=== PATIENT | male | born 1945 | race Caucasian/White ===

== ENCOUNTER 2018-05-05 22:21 | Inpatient (IN) | payer MEDICARE ==
[~2018-05-05] VITALS: Ht 203.2 cm; Wt 163.5 kg
[~2018-05-05 22:21] MED LIST: AEC81 PO; ALPR1TAB7 PO; ASPIRIN; DULO60CA63 PO; FURO40TA5 PO; ISOS60TA4 PO; LEVO125T11 PO; METO-408 PO; MONT10TA24 PO; OXYC20TA76 PO; PREG200C PO; RANO500T2 PO; TAMS0.4C32 PO; UMEC1DIS IH; VITAMIN D PO
[2018-05-05 22:41] LABS: BASOPHILS % (AUTO) 0.5 % (0.0-5.0); HEMATOCRIT 34.1 % (42-54); LYMPHOCYTES % (AUTO) 24.4 % (21.0-51.0); MEAN CORPUSCULAR HEMOGLOBIN 30.3 pg (27.0-33.0); MEAN CORPUSCULAR HGB CONC 33.2 g/dL (32.0-36.0); MEAN CORPUSCULAR VOLUME 91.4 fL (79-99); MONOCYTES % (AUTO) 7.5 % (3.0-13.0); NEUTROPHILS % (AUTO) 64.6 % (40.0-77.0); PLATELET COUNT (AUTO) 179 K/uL (130-400); RED BLOOD CELL COUNT(AUTO) 3.73 MIL/uL (4.50-6.20); RED CELL DISTRIBUTION WIDTH 14.5 % (11.0-15.5); WHITE BLOOD COUNT (AUTO) 7.5 K/uL (4.8-10.8)
[2018-05-05 22:53] LABS: CREATININE 1.3 mg/dL (0.5-1.5); POTASSIUM 4.4 mmol/L (3.5-5.1)
[2018-05-05 22:54] LABS: ALBUMIN 3.3 g/dL (3.5-5.0); BILIRUBIN,TOTAL 0.3 mg/dL (0.2-1.0); TOTAL PROTEIN, SERUM 7.3 g/dL (6.0-8.3)
[2018-05-05 23:00] LABS: INR 0.99 (0.85-1.15); PARTIAL THROMBOPLASTIN TIME 31.4 SEC (26.3-35.5); PROTHROMBIN TIME 10.4 SEC (9.6-11.6)
[2018-05-05 23:09] LABS: B-TYPE NATRIURETIC PEPTIDE 194 pg/mL (0-100)
[2018-05-06] VITALS (8 sets, daily range): BP systolic 122–159; BP diastolic 62–109
[2018-05-06 00:23] LABS: APPEARANCE,URINE Clear (CLEAR); BILIRUBIN,URINE Negative (NEGATIVE); COLOR,URINE Yellow (YELLOW); GLUCOSE, URINE (UA) Negative (NEGATIVE); KETONES,URINE Negative (NEGATIVE); LEUKOCYTE ESTERASE ,URINE Negative (NEGATIVE); NITRATE,URINE Negative (NEGATIVE); OCCULT BLOOD,URINE Negative (NEGATIVE); PH,URINE 5.5 (5.0-8.0); PROTEIN,URINE Negative (NEGATIVE)
[2018-05-06] MEDS ORDERED: SODIUM CHLORIDE 0.9% 1000ML 1,000 ML IV SCH (00:37)
[2018-05-06] MEDS ORDERED: ACETAMINOPHEN 325 MG TAB PO PRN (00:45)
[2018-05-06] MEDS ORDERED: ONDANSETRON HCL 4 MG/2 ML VIAL IV PRN (00:45)
[2018-05-06] MEDS ORDERED: NITROGLYCERIN 0.4 MG SL TAB SL PRN (00:45)
[2018-05-06] MEDS ORDERED: IPRATROPIUM/ALBUTEROL SULFATE 3 ML SOLUTION IH PRN ×2 (00:45→12:00)
[2018-05-06] MEDS ORDERED: SODIUM CHLORIDE 0.9% 1000ML 1,000 ML IV ONE (01:04)
[2018-05-06 01:25] LABS: MAGNESIUM 2.1 mg/dL (1.80-2.40); THYROID STIMULATING HORMONE 1.74 uIU/mL (0.36-3.74)
[2018-05-06] MEDS ORDERED: IPRATROPIUM 0.5 MG/2.5 ML INH IH PRN (02:30)
[2018-05-06] MEDS ORDERED: HYDROCODONE/ACETAMINOPHEN 5/325 MG TAB ONE (03:09)
[2018-05-06] MEDS ORDERED: POTA-9 PO (03:53)
[2018-05-06] MEDS ORDERED: SIMV10TA6 PO (03:53)
[2018-05-06] MEDS ORDERED: CHOL50004 PO (03:53)
[2018-05-06] MEDS ORDERED: RANO10003 PO (03:53)
[2018-05-06] MEDS ORDERED: FURO40TA5 PO (03:53)
[2018-05-06] MEDS ORDERED: ASPI-1181 PO (03:53)
[2018-05-06] MEDS ORDERED: METO50TA9 PO (03:53)
[2018-05-06] MEDS ORDERED: PREG75 PO (03:53)
[2018-05-06] MEDS ORDERED: PRAS10TA9 PO (03:53)
[2018-05-06] MEDS ORDERED: ALPR1TAB7 PO (03:53)
[2018-05-06] MEDS ORDERED: TAMS0.4C32 PO (03:53)
[2018-05-06] MEDS ORDERED: DIGO-44 PO (03:53)
[2018-05-06] MEDS ORDERED: AMLO5TAB9 PO (03:53)
[2018-05-06] MEDS ORDERED: DULO60CA63 PO (03:53)
[2018-05-06] MEDS ORDERED: ISOS30TA6 PO (03:53)
[2018-05-06] MEDS ORDERED: DEXT1DRO OU (03:53)
[2018-05-06] MEDS ORDERED: LEVO125 PO (03:53)
[2018-05-06 04:19] LABS: AMPHET/METH SCREEN,URINE NEGATIVE (NEGATIVE); BARBITURATE SCREEN, URINE NEGATIVE (NEGATIVE); BENZODIAZEPINES SCREEN,URINE NEGATIVE (NEGATIVE); CANNABINOID SCREEN,URINE NEGATIVE (NEGATIVE); COCAINE SCREEN,URINE NEGATIVE (NEGATIVE); OPIATE SCREEN,URINE NEGATIVE (NEGATIVE); PHENCYCLIDINE SCREEN,URINE NEGATIVE (NEGATIVE)
[2018-05-06 05:35] LABS: CREATINE KINASE, TOTAL 161 U/L (21-232); MYOGLOBIN 113 ng/mL (10-92); TROPONIN I < 0.04 ng/mL (0.00-0.06)
[2018-05-06] MEDS: PANTOPRAZOLE SODIUM 40 MG TABLET.DR PO SCH (09:02)
[2018-05-06] MEDS: ENOXAPARIN SODIUM 40 MG/0.4 ML SYRINGE SQ SCH (09:02)
[2018-05-06 10:11] LABS: BASOPHILS % (AUTO) 0.3 % (0.0-5.0); EOSINOPHILS % (AUTO) 2.6 % (0.0-8.0); HEMATOCRIT 33.4 % (42-54); LYMPHOCYTES % (AUTO) 28.3 % (21.0-51.0); MEAN CORPUSCULAR HEMOGLOBIN 29.9 pg (27.0-33.0); MEAN CORPUSCULAR HGB CONC 32.6 g/dL (32.0-36.0); MEAN CORPUSCULAR VOLUME 91.7 fL (79-99); MONOCYTES % (AUTO) 8.2 % (3.0-13.0); NEUTROPHILS % (AUTO) 60.6 % (40.0-77.0); PLATELET COUNT (AUTO) 150 K/uL (130-400); RED BLOOD CELL COUNT(AUTO) 3.65 MIL/uL (4.50-6.20); RED CELL DISTRIBUTION WIDTH 14.6 % (11.0-15.5); WHITE BLOOD COUNT (AUTO) 7.4 K/uL (4.8-10.8)
[2018-05-06 10:29] LABS: ALBUMIN 2.8 g/dL (3.5-5.0); BILIRUBIN,TOTAL 0.3 mg/dL (0.2-1.0); CREATININE 1.3 mg/dL (0.5-1.5); POTASSIUM 4.2 mmol/L (3.5-5.1); TOTAL PROTEIN, SERUM 6.3 g/dL (6.0-8.3)
[2018-05-06 10:39] LABS: CREATINE KINASE, TOTAL 151 U/L (21-232); MYOGLOBIN 105 ng/mL (10-92); TROPONIN I < 0.04 ng/mL (0.00-0.06)
[2018-05-06] MEDS ORDERED: ARTIFICAL TEARS SOL 15 ML OU PRN (11:00)
--- NOTE | 2018-05-06 12:05 | NUR ---
C/O OF SOB . .. PT HOB UP. PLACED ON 2 LITER NC . AND NOTIFY . YAAKOV. LEROY, REGARDING PT. C/O ORDERS FOR RESP TREATMENT. RESPT STAFF HERE AND WILL GIVE A RESP TX NOW. O2 SAT OF 95% RR OF 18
--- NOTE | 2018-05-06 13:53 | NUR ---
DCP CM met with pt discussed dc plans. Pt is independent prior to admission, states he lives at home with cousin Beronica Jensen. He uses a cane and has a hospital bed at home. Denies any other equipments/services. Pt feels safe to go back home, cousin able to assist with transportation and needs as necessary. DC plan to home once stable. CM to cont to follow up. Addendum: 05/06/18 at 1355 by INO DYER LVN CM Amended: Links added.
[2018-05-06] MEDS: DIGOXIN 125 MCG TABLET PO SCH (16:12)
[2018-05-06] MEDS: RANOLAZINE 500 MG TAB.SR.12H PO SCH (21:56)
[2018-05-06] MEDS: FUROSEMIDE 40 MG TABLET PO SCH (21:56)
[2018-05-06] MEDS: PREGABALIN 75 MG CAPSULE PO SCH (21:56)
[2018-05-06] MEDS: METOPROLOL TARTRATE 50 MG TAB PO SCH (21:57)
[2018-05-06] MEDS: SIMVASTATIN 10 MG TABLET PO SCH (21:57)
--- NOTE | 2018-05-06 22:00 | NUR ---
SHORTNESS OF BREATH Patient is resting in bed, AA&O X3. Patient states he is not feeling well and has shortness of breath with wheezing. Raised the head of bed and assessed patient. Bilateral lungs clear upon auscultation; O2 Sat is 96% on 2 liters via NC. Vital signs are WNL. Paged CLOTH PRINTING BACK TENDER Kanu Degroot to inform of patient's shortness of breath. Obtained orders to place patient on BiPap and to make sure respiratory gives patient atrovent breathing treatment. Will follow orders and continue to monitor patient.
[2018-05-06] MEDS: HYDROCODONE/ACETAMINOPHEN 5/325 MG TAB PO PRN (22:16)
--- NOTE | 2018-05-06 22:20 | NUR ---
STATUS OF PATIENT Patient still feels shortness of breath and states he wants the SALES AND BUSINESS DEVELOPMENT MANAGER fashion marketer to come see him. Patient received his breathing treatment by respiratory and is not ready to be on the bipap at this time. Paged SALES AND BUSINESS DEVELOPMENT MANAGER Kanu Degroot. Informed her of patient still feeling shortness of breath and a request to see SALES AND BUSINESS DEVELOPMENT MANAGER. SALES AND BUSINESS DEVELOPMENT MANAGER made rounds with the patient and assessed patient. Placed order to discontinue IV fluids and to do a stat EKG and cardiac panel. SALES AND BUSINESS DEVELOPMENT MANAGER states to notify if cardiac panel is abnormal. Will follow orders and continue to monitor patient.
[2018-05-06 23:03] LABS: CREATINE KINASE, TOTAL 143 U/L (21-232); MYOGLOBIN 76 ng/mL (10-92); TROPONIN I < 0.04 ng/mL (0.00-0.06)
--- NOTE | 2018-05-06 23:30 | NUR ---
STATUS OF PATIENT Patient is resting in bed. Patient states he is feeling better and not in shortness of breath at this time. MUSHROOM PICKER made rounds again with patient. Cardiac panel is negative and reviewed EKG. MUSHROOM PICKER states that patient will be having a chest x-ray tomorrow am. No orders were obtained at this time. Will continue to monitor patient.
[2018-05-07] VITALS (7 sets, daily range): BP systolic 95–146; BP diastolic 51–70
[2018-05-07 05:27] LABS: BASOPHILS % (AUTO) 0.4 % (0.0-5.0); EOSINOPHILS % (AUTO) 1.7 % (0.0-8.0); HEMATOCRIT 36.1 % (42-54); LYMPHOCYTES % (AUTO) 9.7 % (21.0-51.0); MEAN CORPUSCULAR HEMOGLOBIN 30.6 pg (27.0-33.0); MEAN CORPUSCULAR HGB CONC 33.3 g/dL (32.0-36.0); MEAN CORPUSCULAR VOLUME 91.9 fL (79-99); MONOCYTES % (AUTO) 9.2 % (3.0-13.0); PLATELET COUNT (AUTO) 169 K/uL (130-400); RED BLOOD CELL COUNT(AUTO) 3.92 MIL/uL (4.50-6.20); RED CELL DISTRIBUTION WIDTH 14.7 % (11.0-15.5); WHITE BLOOD COUNT (AUTO) 9.5 K/uL (4.8-10.8)
[2018-05-07 05:39] LABS: CREATININE 1.3 mg/dL (0.5-1.5); POTASSIUM 4.4 mmol/L (3.5-5.1)
[2018-05-07] MEDS: LEVOTHYROXINE 125 MCG TABLET PO SCH (06:41)
[2018-05-07] MEDS: DULOXETINE HCL 30 MG CAP PO SCH (08:23)
[2018-05-07] MEDS: AMLODIPINE BESYLATE 5 MG TAB PO SCH (08:24)
[2018-05-07] MEDS: METOPROLOL TARTRATE 50 MG TAB PO SCH ×2 (08:24→21:05)
[2018-05-07] MEDS: TAMSULOSIN HCL 0.4 MG CAP.ER.24H PO SCH (08:24)
[2018-05-07] MEDS: FUROSEMIDE 40 MG TABLET PO SCH ×2 (08:24→21:05)
[2018-05-07] MEDS: PANTOPRAZOLE SODIUM 40 MG TABLET.DR PO SCH (08:24)
[2018-05-07] MEDS: RANOLAZINE 500 MG TAB.SR.12H PO SCH ×2 (08:24→21:05)
[2018-05-07] MEDS: ASPIRIN 81 MG EC TAB PO SCH (08:24)
[2018-05-07] MEDS: ISOSORBIDE MONO 30MG TAB SR PO SCH (08:26)
[2018-05-07] MEDS: PREGABALIN 75 MG CAPSULE PO SCH ×2 (08:26→21:05)
[2018-05-07] MEDS: ENOXAPARIN SODIUM 40 MG/0.4 ML SYRINGE SQ SCH (08:27)
[2018-05-07] MEDS: CHOLECALCIFEROL 5000 UNIT PO SCH (08:27)
[2018-05-07] MEDS: PRASUGREL HCL 10 MG TABLET PO SCH (08:32)
[2018-05-07] MEDS: HYDROCODONE/ACETAMINOPHEN 5/325 MG TAB PO PRN ×2 (08:32→18:25)
[2018-05-07] MEDS: DIGOXIN 125 MCG TABLET PO SCH (15:38)
[2018-05-07] MEDS: SIMVASTATIN 10 MG TABLET PO SCH (21:05)
[2018-05-08] VITALS (8 sets, daily range): BP systolic 95–126; BP diastolic 50–72
[2018-05-08] MEDS: HYDROCODONE/ACETAMINOPHEN 5/325 MG TAB PO PRN ×4 (00:02→20:20)
[2018-05-08 04:30] LABS: BASOPHILS % (AUTO) 0.4 % (0.0-5.0); EOSINOPHILS % (AUTO) 3.3 % (0.0-8.0); HEMATOCRIT 33.2 % (42-54); LYMPHOCYTES % (AUTO) 23.6 % (21.0-51.0); MEAN CORPUSCULAR HEMOGLOBIN 30.4 pg (27.0-33.0); MEAN CORPUSCULAR HGB CONC 33.3 g/dL (32.0-36.0); MEAN CORPUSCULAR VOLUME 91.3 fL (79-99); MONOCYTES % (AUTO) 12.2 % (3.0-13.0); NEUTROPHILS % (AUTO) 60.5 % (40.0-77.0); PLATELET COUNT (AUTO) 142 K/uL (130-400); RED BLOOD CELL COUNT(AUTO) 3.63 MIL/uL (4.50-6.20); RED CELL DISTRIBUTION WIDTH 14.8 % (11.0-15.5); WHITE BLOOD COUNT (AUTO) 7.2 K/uL (4.8-10.8)
[2018-05-08 04:50] LABS: CREATININE 1.5 mg/dL (0.5-1.5); POTASSIUM 4.4 mmol/L (3.5-5.1)
[2018-05-08 05:02] LABS: B-TYPE NATRIURETIC PEPTIDE 163 pg/mL (0-100)
[2018-05-08] MEDS: LEVOTHYROXINE 125 MCG TABLET PO SCH (06:45)
[2018-05-08] MEDS: FUROSEMIDE 40 MG TABLET PO SCH ×2 (08:57→20:24)
[2018-05-08] MEDS: ASPIRIN 81 MG EC TAB PO SCH (08:57)
[2018-05-08] MEDS: PANTOPRAZOLE SODIUM 40 MG TABLET.DR PO SCH (08:58)
[2018-05-08] MEDS: TAMSULOSIN HCL 0.4 MG CAP.ER.24H PO SCH (08:58)
[2018-05-08] MEDS: METOPROLOL TARTRATE 50 MG TAB PO SCH ×2 (08:58→20:20)
[2018-05-08] MEDS: RANOLAZINE 500 MG TAB.SR.12H PO SCH ×2 (08:58→20:20)
[2018-05-08] MEDS: PREGABALIN 75 MG CAPSULE PO SCH (08:58)
[2018-05-08] MEDS: ISOSORBIDE MONO 30MG TAB SR PO SCH (08:58)
[2018-05-08] MEDS: DULOXETINE HCL 30 MG CAP PO SCH (08:58)
[2018-05-08] MEDS: ENOXAPARIN SODIUM 40 MG/0.4 ML SYRINGE SQ SCH (08:59)
[2018-05-08] MEDS: CHOLECALCIFEROL 5000 UNIT PO SCH (08:59)
[2018-05-08] MEDS: AMLODIPINE BESYLATE 5 MG TAB PO SCH (09:00)
[2018-05-08] MEDS: PRASUGREL HCL 10 MG TABLET PO SCH (10:12)
--- NOTE | 2018-05-08 12:41 | NUR ---
CM Note: [facility] pending ins auth Spoke to [facility]. updated clinicals received and submitted to insurance. Pt currently pending ins auth at this time, MOT flagged semi-filled in chart. Primary nurse aware. CM to cont to follow up.
[2018-05-08] MEDS: DIGOXIN 125 MCG TABLET PO SCH (16:16)
[2018-05-08] MEDS: SIMVASTATIN 10 MG TABLET PO SCH (20:20)
[2018-05-08] MEDS: GABAPENTIN 100 MG CAPSULE PO SCH (20:20)
[2018-05-09] VITALS (7 sets, daily range): BP systolic 100–129; BP diastolic 61–65
[2018-05-09] MEDS: HYDROCODONE/ACETAMINOPHEN 5/325 MG TAB PO PRN ×3 (03:33→21:48)
[2018-05-09 04:13] LABS: BASOPHILS % (AUTO) 0.5 % (0.0-5.0); EOSINOPHILS % (AUTO) 4.1 % (0.0-8.0); HEMATOCRIT 31.8 % (42-54); LYMPHOCYTES % (AUTO) 17.7 % (21.0-51.0); MEAN CORPUSCULAR HEMOGLOBIN 30.4 pg (27.0-33.0); MEAN CORPUSCULAR HGB CONC 33.3 g/dL (32.0-36.0); MEAN CORPUSCULAR VOLUME 91.3 fL (79-99); MONOCYTES % (AUTO) 10.5 % (3.0-13.0); NEUTROPHILS % (AUTO) 67.2 % (40.0-77.0); PLATELET COUNT (AUTO) 155 K/uL (130-400); RED BLOOD CELL COUNT(AUTO) 3.49 MIL/uL (4.50-6.20); RED CELL DISTRIBUTION WIDTH 14.7 % (11.0-15.5); WHITE BLOOD COUNT (AUTO) 6.8 K/uL (4.8-10.8)
[2018-05-09 04:20] LABS: CREATININE 1.4 mg/dL (0.5-1.5); POTASSIUM 4.5 mmol/L (3.5-5.1)
[2018-05-09] MEDS: LEVOTHYROXINE 125 MCG TABLET PO SCH (07:00)
[2018-05-09] MEDS: GABAPENTIN 100 MG CAPSULE PO SCH ×3 (08:26→21:48)
[2018-05-09] MEDS: TAMSULOSIN HCL 0.4 MG CAP.ER.24H PO SCH (08:26)
[2018-05-09] MEDS: PRASUGREL HCL 10 MG TABLET PO SCH (08:27)
[2018-05-09] MEDS: DULOXETINE HCL 30 MG CAP PO SCH (08:27)
[2018-05-09] MEDS: RANOLAZINE 500 MG TAB.SR.12H PO SCH ×2 (08:27→21:47)
[2018-05-09] MEDS: ASPIRIN 81 MG EC TAB PO SCH (08:27)
[2018-05-09] MEDS: PANTOPRAZOLE SODIUM 40 MG TABLET.DR PO SCH (08:28)
[2018-05-09] MEDS: FUROSEMIDE 40 MG TABLET PO SCH ×2 (08:28→21:47)
[2018-05-09] MEDS: METOPROLOL TARTRATE 50 MG TAB PO SCH ×2 (08:29→21:47)
[2018-05-09] MEDS: ENOXAPARIN SODIUM 40 MG/0.4 ML SYRINGE SQ SCH (08:29)
[2018-05-09] MEDS: ISOSORBIDE MONO 30MG TAB SR PO SCH (08:30)
[2018-05-09] MEDS: CHOLECALCIFEROL 5000 UNIT PO SCH (08:31)
[2018-05-09] MEDS: AMLODIPINE BESYLATE 5 MG TAB PO SCH (09:00)
--- NOTE | 2018-05-09 12:53 | NUR ---
CM Note: [facility] pending ins auth Spoke to [facility], updated clinicals received and sent to insurance. Pt pending ins auth at this time. MOT semi-filled flagged in chart, pending to be completed once pt has auth. Primary nurse aware. CM to cont to follow up.
[2018-05-09] MEDS: DIGOXIN 125 MCG TABLET PO SCH (15:18)
[2018-05-09] MEDS: SIMVASTATIN 10 MG TABLET PO SCH (21:48)
[2018-05-09] MEDS: LACTULOSE 20 GM/30 ML UDCUP PO PRN (21:54)
[2018-05-10 03:00] VITALS: BP 131/69
[2018-05-10] MEDS: LEVOTHYROXINE 125 MCG TABLET PO SCH (06:02)
[2018-05-10] MEDS: HYDROCODONE/ACETAMINOPHEN 5/325 MG TAB PO PRN ×3 (06:02→23:18)
[2018-05-10 07:00] VITALS: BP 116/78
[2018-05-10] MEDS: CHOLECALCIFEROL 5000 UNIT PO SCH (08:56)
[2018-05-10] MEDS: METOPROLOL TARTRATE 50 MG TAB PO SCH ×2 (09:22→23:18)
[2018-05-10] MEDS: AMLODIPINE BESYLATE 5 MG TAB PO SCH (09:22)
[2018-05-10] MEDS: ISOSORBIDE MONO 30MG TAB SR PO SCH (09:22)
[2018-05-10] MEDS: TAMSULOSIN HCL 0.4 MG CAP.ER.24H PO SCH (09:22)
[2018-05-10] MEDS: DULOXETINE HCL 30 MG CAP PO SCH (09:22)
[2018-05-10] MEDS: RANOLAZINE 500 MG TAB.SR.12H PO SCH ×2 (09:23→23:18)
[2018-05-10] MEDS: GABAPENTIN 100 MG CAPSULE PO SCH ×3 (09:23→23:18)
[2018-05-10] MEDS: PANTOPRAZOLE SODIUM 40 MG TABLET.DR PO SCH (09:23)
[2018-05-10] MEDS: FUROSEMIDE 40 MG TABLET PO SCH ×2 (09:23→23:17)
[2018-05-10] MEDS: ASPIRIN 81 MG EC TAB PO SCH (09:23)
[2018-05-10] MEDS: PRASUGREL HCL 10 MG TABLET PO SCH (09:24)
[2018-05-10] MEDS: ENOXAPARIN SODIUM 40 MG/0.4 ML SYRINGE SQ SCH (09:25)
[2018-05-10 11:00] VITALS: BP_SYST 124; BP_SYST 146; BP_DIAS 64; BP_DIAS 66
[2018-05-10 16:00] VITALS: BP 105/58
[2018-05-10] MEDS: DIGOXIN 125 MCG TABLET PO SCH (16:55)
[2018-05-10 20:36] VITALS: BP 103/65
[2018-05-10] MEDS: SIMVASTATIN 10 MG TABLET PO SCH (23:17)
[2018-05-11 01:38] VITALS: BP 119/72
[2018-05-11 04:41] VITALS: BP 127/69
[2018-05-11 05:48] LABS: BASOPHILS % (AUTO) 0.3 % (0.0-5.0); EOSINOPHILS % (AUTO) 5.1 % (0.0-8.0); HEMATOCRIT 32.5 % (42-54); LYMPHOCYTES % (AUTO) 22.7 % (21.0-51.0); MEAN CORPUSCULAR HEMOGLOBIN 30.5 pg (27.0-33.0); MEAN CORPUSCULAR HGB CONC 33.5 g/dL (32.0-36.0); MEAN CORPUSCULAR VOLUME 91.1 fL (79-99); MONOCYTES % (AUTO) 11.5 % (3.0-13.0); NEUTROPHILS % (AUTO) 60.4 % (40.0-77.0); PLATELET COUNT (AUTO) 171 K/uL (130-400); RED BLOOD CELL COUNT(AUTO) 3.56 MIL/uL (4.50-6.20); RED CELL DISTRIBUTION WIDTH 14.2 % (11.0-15.5); WHITE BLOOD COUNT (AUTO) 6.2 K/uL (4.8-10.8)
[2018-05-11 05:57] LABS: CREATININE 1.3 mg/dL (0.5-1.5); POTASSIUM 4.1 mmol/L (3.5-5.1)
[2018-05-11] MEDS: LEVOTHYROXINE 125 MCG TABLET PO SCH (06:29)
[2018-05-11] MEDS: HYDROCODONE/ACETAMINOPHEN 5/325 MG TAB PO PRN ×3 (06:30→23:20)
[2018-05-11 07:00] VITALS: BP 122/65
[2018-05-11] MEDS: ENOXAPARIN SODIUM 40 MG/0.4 ML SYRINGE SQ SCH (08:55)
[2018-05-11] MEDS: DULOXETINE HCL 30 MG CAP PO SCH (08:55)
[2018-05-11] MEDS: RANOLAZINE 500 MG TAB.SR.12H PO SCH ×2 (08:56→23:17)
[2018-05-11] MEDS: TAMSULOSIN HCL 0.4 MG CAP.ER.24H PO SCH (08:56)
[2018-05-11] MEDS: ASPIRIN 81 MG EC TAB PO SCH (08:56)
[2018-05-11] MEDS: PRASUGREL HCL 10 MG TABLET PO SCH (08:56)
[2018-05-11] MEDS: PANTOPRAZOLE SODIUM 40 MG TABLET.DR PO SCH (08:57)
[2018-05-11] MEDS: GABAPENTIN 100 MG CAPSULE PO SCH ×3 (08:57→23:17)
[2018-05-11] MEDS: ISOSORBIDE MONO 30MG TAB SR PO SCH (08:57)
[2018-05-11] MEDS: METOPROLOL TARTRATE 50 MG TAB PO SCH ×2 (08:58→23:17)
[2018-05-11] MEDS: AMLODIPINE BESYLATE 5 MG TAB PO SCH (08:58)
[2018-05-11] MEDS: FUROSEMIDE 40 MG TABLET PO SCH ×2 (08:58→23:17)
[2018-05-11] MEDS: CHOLECALCIFEROL 5000 UNIT PO SCH (09:00)
[2018-05-11 11:00] VITALS: BP 101/48
--- NOTE | 2018-05-11 14:05 | NUR ---
AMBULATING IN THE HALLWAY WITH PHYSICAL THERAPIST AND TOLERATED IT FAIRLY WELL. MEDICATED WITH NORCO FOR REPORTED PAIN TO THE KNEES.
[2018-05-11 16:00] VITALS: BP 120/51
[2018-05-11] MEDS: DIGOXIN 125 MCG TABLET PO SCH (16:55)
[2018-05-11] MEDS: SENNOSIDES 8.6 MG TABLET PO PRN (17:26)
[2018-05-11 21:05] VITALS: BP 103/52
[2018-05-11] MEDS: SIMVASTATIN 10 MG TABLET PO SCH (23:17)
[2018-05-12 01:08] VITALS: BP 119/55
[2018-05-12 05:34] VITALS: BP 109/57
[2018-05-12 07:30] VITALS: BP 126/58
[2018-05-12] MEDS: LEVOTHYROXINE 125 MCG TABLET PO SCH (07:54)
[2018-05-12] MEDS: METOPROLOL TARTRATE 50 MG TAB PO SCH ×2 (09:00→23:07)
[2018-05-12] MEDS: DULOXETINE HCL 30 MG CAP PO SCH (10:24)
[2018-05-12] MEDS: RANOLAZINE 500 MG TAB.SR.12H PO SCH ×2 (10:24→23:07)
[2018-05-12] MEDS: FUROSEMIDE 40 MG TABLET PO SCH ×2 (10:25→23:06)
[2018-05-12] MEDS: PRASUGREL HCL 10 MG TABLET PO SCH (10:25)
[2018-05-12] MEDS: PANTOPRAZOLE SODIUM 40 MG TABLET.DR PO SCH (10:25)
[2018-05-12] MEDS: TAMSULOSIN HCL 0.4 MG CAP.ER.24H PO SCH (10:25)
[2018-05-12] MEDS: AMLODIPINE BESYLATE 5 MG TAB PO SCH (10:25)
[2018-05-12] MEDS: ISOSORBIDE MONO 30MG TAB SR PO SCH (10:26)
[2018-05-12] MEDS: ASPIRIN 81 MG EC TAB PO SCH (10:26)
[2018-05-12] MEDS: CHOLECALCIFEROL 5000 UNIT PO SCH (10:28)
[2018-05-12] MEDS: GABAPENTIN 100 MG CAPSULE PO SCH ×3 (10:32→23:09)
[2018-05-12] MEDS: ENOXAPARIN SODIUM 40 MG/0.4 ML SYRINGE SQ SCH (10:34)
--- NOTE | 2018-05-12 10:35 | NUR ---
PATIENT IS ALERT AND AWAKE WATCHING THE NEWS, HE VERBALIZED FEELING WEAK. HIS METOPROLOL IS HELD DUE TO LOW HR 48-60.
[2018-05-12] MEDS: SENNOSIDES 8.6 MG TABLET PO PRN (10:40)
[2018-05-12 11:00] VITALS: BP 135/73
--- NOTE | 2018-05-12 14:30 | NUR ---
[facility] REP CAME IN TO ASSESS THE PATIENT. PENDING INSURANCE AUTHORIZATION.
--- NOTE | 2018-05-12 14:57 | NUR ---
DR WARNER CAME IN TO SEE THE PATIENT AND SIGNED OFF. NEW ORDER WAS RECEIVED.
[2018-05-12 16:00] VITALS: BP 124/63
[2018-05-12] MEDS: DIGOXIN 125 MCG TABLET PO SCH (17:08)
[2018-05-12 21:05] VITALS: BP 107/50
[2018-05-12] MEDS: SIMVASTATIN 10 MG TABLET PO SCH (23:06)
[2018-05-12] MEDS: LACTULOSE 20 GM/30 ML UDCUP PO PRN (23:16)
[2018-05-13] VITALS (7 sets, daily range): BP systolic 105–129; BP diastolic 52–73
[2018-05-13 05:54] LABS: BASOPHILS % (AUTO) 0.4 % (0.0-5.0); EOSINOPHILS % (AUTO) 2.4 % (0.0-8.0); HEMATOCRIT 35.5 % (42-54); LYMPHOCYTES % (AUTO) 14.8 % (21.0-51.0); MEAN CORPUSCULAR HEMOGLOBIN 30.1 pg (27.0-33.0); MEAN CORPUSCULAR HGB CONC 33.2 g/dL (32.0-36.0); MEAN CORPUSCULAR VOLUME 90.8 fL (79-99); MONOCYTES % (AUTO) 10.8 % (3.0-13.0); NEUTROPHILS % (AUTO) 71.6 % (40.0-77.0); PLATELET COUNT (AUTO) 229 K/uL (130-400); RED BLOOD CELL COUNT(AUTO) 3.91 MIL/uL (4.50-6.20); RED CELL DISTRIBUTION WIDTH 14.4 % (11.0-15.5); WHITE BLOOD COUNT (AUTO) 8.4 K/uL (4.8-10.8)
[2018-05-13 06:23] LABS: CREATININE 1.4 mg/dL (0.5-1.5); POTASSIUM 4.2 mmol/L (3.5-5.1)
[2018-05-13] MEDS: LEVOTHYROXINE 125 MCG TABLET PO SCH (06:41)
[2018-05-13] MEDS: HYDROCODONE/ACETAMINOPHEN 5/325 MG TAB PO PRN ×3 (06:42→21:32)
[2018-05-13] MEDS: PANTOPRAZOLE SODIUM 40 MG TABLET.DR PO SCH (09:05)
[2018-05-13] MEDS: ASPIRIN 81 MG EC TAB PO SCH (09:05)
[2018-05-13] MEDS: ISOSORBIDE MONO 30MG TAB SR PO SCH (09:05)
[2018-05-13] MEDS: METOPROLOL TARTRATE 50 MG TAB PO SCH ×2 (09:05→21:22)
[2018-05-13] MEDS: DULOXETINE HCL 30 MG CAP PO SCH (09:05)
[2018-05-13] MEDS: PRASUGREL HCL 10 MG TABLET PO SCH (09:06)
[2018-05-13] MEDS: RANOLAZINE 500 MG TAB.SR.12H PO SCH ×2 (09:06→21:22)
[2018-05-13] MEDS: AMLODIPINE BESYLATE 5 MG TAB PO SCH (09:06)
[2018-05-13] MEDS: TAMSULOSIN HCL 0.4 MG CAP.ER.24H PO SCH (09:07)
[2018-05-13] MEDS: FUROSEMIDE 40 MG TABLET PO SCH ×2 (09:07→21:22)
[2018-05-13] MEDS: GABAPENTIN 100 MG CAPSULE PO SCH (09:07)
[2018-05-13] MEDS: ENOXAPARIN SODIUM 40 MG/0.4 ML SYRINGE SQ SCH (09:10)
[2018-05-13] MEDS: CHOLECALCIFEROL 5000 UNIT PO SCH (09:10)
--- NOTE | 2018-05-13 15:30 | NUR ---
DC PLAN CHANGE WAS ADVISED BY [facility] THAT [facility] HAS BEEN DENIED. WENT TO SPEAK TO PT. HE STATED IF I CANT GO THERE, I MIGHT WELL GO HOME" MARIYA ADVISED HIM TO CONSIDER SNF. WILL LET MARIYA KNOW IN AM Addendum: 05/13/18 at 1730 by ROSSI REED RN CM Amended: Links added.
--- NOTE | 2018-05-13 16:27 | NUR ---
RDSCREEN - LOS X 7 Patient tolerating current Heart Healthy with intake at 100%. Patient reports no nausea/vomiting, however patient LBM 05/05/18; rec to add stool softener, laxative, or probiotic. Patient monitored labs BUN 26, GFR 53, Alb 2.8. RD to continue to monitor nutritional labs and PO intake. Please notify RD as nutritional concerns arise. Thank you. Addendum: 05/13/18 at [address] Amended: Links added.
--- NOTE | 2018-05-13 17:00 | NUR ---
MAGAZINE KEEPER CALL ME TO OBSERVE URINE OUTPUT WITH BROWNISH COLOR WHICH IS A SUDDEN CHANGE FROM THIS MORNING OUTPUT WAS PALE YELLOW CLEAR. NEW ORDER RECEIVED FOR 1 LITER OF NORMAL SALINE IV.
[2018-05-13] MEDS ORDERED: SODIUM CHLORIDE 0.9% 1000ML 1,000 ML IV SCH (17:30)
[2018-05-13] MEDS: DIGOXIN 125 MCG TABLET PO SCH (17:48)
[2018-05-13] MEDS: PREGABALIN 75 MG CAPSULE PO SCH (21:21)
[2018-05-13] MEDS: SIMVASTATIN 10 MG TABLET PO SCH (21:22)
[2018-05-14] VITALS (7 sets, daily range): BP systolic 89–114; BP diastolic 46–66
[2018-05-14] MEDS: LEVOTHYROXINE 125 MCG TABLET PO SCH (05:28)
[2018-05-14 05:35] LABS: BASOPHILS % (AUTO) 0.3 % (0.0-5.0); EOSINOPHILS % (AUTO) 3.7 % (0.0-8.0); HEMATOCRIT 35.6 % (42-54); LYMPHOCYTES % (AUTO) 23.7 % (21.0-51.0); MEAN CORPUSCULAR VOLUME 90.8 fL (79-99); MONOCYTES % (AUTO) 10.8 % (3.0-13.0); NEUTROPHILS % (AUTO) 61.5 % (40.0-77.0); PLATELET COUNT (AUTO) 197 K/uL (130-400); RED BLOOD CELL COUNT(AUTO) 3.92 MIL/uL (4.50-6.20); RED CELL DISTRIBUTION WIDTH 14.2 % (11.0-15.5); WHITE BLOOD COUNT (AUTO) 7.3 K/uL (4.8-10.8)
[2018-05-14] MEDS: HYDROCODONE/ACETAMINOPHEN 5/325 MG TAB PO PRN ×2 (05:40→21:26)
[2018-05-14 05:49] LABS: CREATININE 1.3 mg/dL (0.5-1.5)
[2018-05-14] MEDS: CHOLECALCIFEROL 5000 UNIT PO SCH (09:00)
--- NOTE | 2018-05-14 09:00 | NUR ---
MULTIPLE BRUISES NOTED TO ARMS AND LT. ELBOW.
[2018-05-14] MEDS: FUROSEMIDE 40 MG TABLET PO SCH ×2 (09:51→21:27)
[2018-05-14] MEDS: AMLODIPINE BESYLATE 5 MG TAB PO SCH (09:51)
[2018-05-14] MEDS: TAMSULOSIN HCL 0.4 MG CAP.ER.24H PO SCH (09:51)
[2018-05-14] MEDS: PREGABALIN 75 MG CAPSULE PO SCH ×2 (09:51→21:26)
[2018-05-14] MEDS: ISOSORBIDE MONO 30MG TAB SR PO SCH (09:51)
[2018-05-14] MEDS: DULOXETINE HCL 30 MG CAP PO SCH (09:52)
[2018-05-14] MEDS: RANOLAZINE 500 MG TAB.SR.12H PO SCH ×2 (09:52→21:25)
[2018-05-14] MEDS: METOPROLOL TARTRATE 50 MG TAB PO SCH ×2 (09:52→21:00)
[2018-05-14] MEDS: PRASUGREL HCL 10 MG TABLET PO SCH (09:52)
[2018-05-14] MEDS: ASPIRIN 81 MG EC TAB PO SCH (09:52)
[2018-05-14] MEDS: PANTOPRAZOLE SODIUM 40 MG TABLET.DR PO SCH (09:52)
[2018-05-14] MEDS: ENOXAPARIN SODIUM 40 MG/0.4 ML SYRINGE SQ SCH (09:53)
--- NOTE | 2018-05-14 10:00 | NUR ---
NO C/O, RESTING ,LOOKS COMFORTABLE.
--- NOTE | 2018-05-14 13:30 | NUR ---
DR. STEINER, [facility], IN TO SEE PT. CONVINCED PT. HE COULD NOT GO HOME, AFTER [facility] STATED HE WAS JUST GOING TO GO HOME, LIVES BY HIMSELF.
[2018-05-14] MEDS: DIGOXIN 125 MCG TABLET PO SCH (16:00)
--- NOTE | 2018-05-14 17:25 | NUR ---
LANOXIN DOSE HELD, HEART 51
--- NOTE | 2018-05-14 18:36 | NUR ---
HAS BEEN DENIED PLACEMENT AT [facility] AND NOW REFERRAL HAS BEEN SEND TO [facility].
[2018-05-14] MEDS: SIMVASTATIN 10 MG TABLET PO SCH (21:25)
[2018-05-15] VITALS (9 sets, daily range): BP systolic 85–131; BP diastolic 42–75
[2018-05-15] MEDS: LEVOTHYROXINE 125 MCG TABLET PO SCH (05:29)
[2018-05-15] MEDS: HYDROCODONE/ACETAMINOPHEN 5/325 MG TAB PO PRN ×4 (05:30→17:47)
[2018-05-15] MEDS: CHOLECALCIFEROL 5000 UNIT PO SCH (09:00)
--- NOTE | 2018-05-15 09:39 | NUR ---
DC PLANNING TO GP- COMPLICATION SPOEK TO PT EARLY THIS MONRING, WAS AFIVSED BY ÁNGELA LEVIN THAT THE [employer] WILL NEED A REFERRAL FROM HIS PRIMARY PHYSICIAN TO AUTH THE TRANSFER TO GP. PT CALLED HIS PMD DR. NINO NAVARRO, WHO STATED PT WOULD NEED TO COME TO OFFICE FOR THAT. PT VERY DSTRAUGHT THAT HE WOULD HAVE TO GO HOME. STATES CANNOT, HAS NO TRANSPORTATION HOME WILL FOLLOW UP WITH INSURANCE OR GP. CM TO FOLLOW
[2018-05-15] MEDS: RANOLAZINE 500 MG TAB.SR.12H PO SCH ×2 (09:41→21:05)
[2018-05-15] MEDS: AMLODIPINE BESYLATE 5 MG TAB PO SCH (09:42)
[2018-05-15] MEDS: ASPIRIN 81 MG EC TAB PO SCH (09:42)
[2018-05-15] MEDS: DULOXETINE HCL 30 MG CAP PO SCH (09:42)
[2018-05-15] MEDS: TAMSULOSIN HCL 0.4 MG CAP.ER.24H PO SCH (09:42)
[2018-05-15] MEDS: PRASUGREL HCL 10 MG TABLET PO SCH (09:42)
[2018-05-15] MEDS: PREGABALIN 75 MG CAPSULE PO SCH ×2 (09:42→21:04)
[2018-05-15] MEDS: METOPROLOL TARTRATE 50 MG TAB PO SCH ×2 (09:43→21:05)
[2018-05-15] MEDS: FUROSEMIDE 40 MG TABLET PO SCH ×2 (09:43→21:05)
[2018-05-15] MEDS: ENOXAPARIN SODIUM 40 MG/0.4 ML SYRINGE SQ SCH (09:44)
[2018-05-15] MEDS: ISOSORBIDE MONO 30MG TAB SR PO SCH (09:51)
[2018-05-15] MEDS: PANTOPRAZOLE SODIUM 40 MG TABLET.DR PO SCH (11:01)
[2018-05-15] MEDS: DIGOXIN 125 MCG TABLET PO SCH (17:17)
[2018-05-15] MEDS: SIMVASTATIN 10 MG TABLET PO SCH (21:05)
[2018-05-16] VITALS (9 sets, daily range): BP systolic 93–130; BP diastolic 42–75
[2018-05-16] MEDS: HYDROCODONE/ACETAMINOPHEN 5/325 MG TAB PO PRN ×3 (03:36→18:42)
--- NOTE | 2018-05-16 04:35 | NUR ---
[id number] WITH UNSUSTAINED 30'S-40'S X2-3 SECONDS AND BACK UP TO 50'S. PATIENT ASYMPTOMATIC, DENIES ANY DISCOMFORT. B/P 110'S/50'S. WILL CONTINUE TO MONITOR.
[2018-05-16] MEDS: LEVOTHYROXINE 125 MCG TABLET PO SCH (04:58)
--- NOTE | 2018-05-16 07:30 | NUR ---
[id number] CONTINUES WITH UNSUSTAINED HEART RATE 30'S-40'S X2-3 SECONDS AND BACK UP TO 50'S-60'S. PATIENT CONTINUES ASYMPTOMATIC AND DENIES ANY DISCOMFORT.
[2018-05-16] MEDS: CHOLECALCIFEROL 5000 UNIT PO SCH (09:00)
[2018-05-16] MEDS: FUROSEMIDE 40 MG TABLET PO SCH ×2 (12:24→21:27)
[2018-05-16] MEDS: PANTOPRAZOLE SODIUM 40 MG TABLET.DR PO SCH (12:24)
[2018-05-16] MEDS: DULOXETINE HCL 30 MG CAP PO SCH (12:25)
[2018-05-16] MEDS: TAMSULOSIN HCL 0.4 MG CAP.ER.24H PO SCH (12:26)
[2018-05-16] MEDS: RANOLAZINE 500 MG TAB.SR.12H PO SCH ×2 (12:26→21:27)
[2018-05-16] MEDS: PRASUGREL HCL 10 MG TABLET PO SCH (12:26)
[2018-05-16] MEDS: ISOSORBIDE MONO 30MG TAB SR PO SCH (12:27)
[2018-05-16] MEDS: AMLODIPINE BESYLATE 5 MG TAB PO SCH (12:27)
[2018-05-16] MEDS: PREGABALIN 75 MG CAPSULE PO SCH ×2 (12:27→21:27)
[2018-05-16] MEDS: ASPIRIN 81 MG EC TAB PO SCH (12:27)
[2018-05-16] MEDS: DIGOXIN 125 MCG TABLET PO SCH (12:28)
[2018-05-16] MEDS: ENOXAPARIN SODIUM 40 MG/0.4 ML SYRINGE SQ SCH (12:32)
[2018-05-16] MEDS ORDERED: METOPROLOL TARTRATE 25 MG TAB PO SCH (21:00)
[2018-05-16] MEDS: SIMVASTATIN 10 MG TABLET PO SCH (21:27)
[2018-05-17] MEDS: HYDROCODONE/ACETAMINOPHEN 5/325 MG TAB PO PRN ×3 (03:08→23:23)
[2018-05-17 03:25] VITALS: BP_SYST 117; BP_SYST 98; BP_SYST 99; BP_DIAS 50; BP_DIAS 57
[2018-05-17 04:59] LABS: HEMATOCRIT 35.1 % (42-54); MEAN CORPUSCULAR HEMOGLOBIN 29.9 pg (27.0-33.0); MEAN CORPUSCULAR HGB CONC 32.7 g/dL (32.0-36.0); MEAN CORPUSCULAR VOLUME 91.4 fL (79-99); NUCLEATED RED BLOOD CELLS 0.1 % (0.0-0.19); PLATELET COUNT (AUTO) 236 K/uL (130-400); RED BLOOD CELL COUNT(AUTO) 3.85 MIL/uL (4.50-6.20); RED CELL DISTRIBUTION WIDTH 14.4 % (11.0-15.5); WHITE BLOOD COUNT (AUTO) 5.5 K/uL (4.8-10.8)
[2018-05-17 05:14] LABS: CREATININE 1.6 mg/dL (0.5-1.5); POTASSIUM 4.2 mmol/L (3.5-5.1)
[2018-05-17] MEDS: LEVOTHYROXINE 125 MCG TABLET PO SCH (06:47)
[2018-05-17 08:00] VITALS: BP 108/59
[2018-05-17] MEDS: AMLODIPINE BESYLATE 5 MG TAB PO SCH (10:31)
[2018-05-17] MEDS: DULOXETINE HCL 30 MG CAP PO SCH (10:31)
[2018-05-17] MEDS: TAMSULOSIN HCL 0.4 MG CAP.ER.24H PO SCH (10:31)
[2018-05-17] MEDS: PRASUGREL HCL 10 MG TABLET PO SCH (10:31)
[2018-05-17] MEDS: ENOXAPARIN SODIUM 40 MG/0.4 ML SYRINGE SQ SCH (10:31)
[2018-05-17] MEDS: FUROSEMIDE 40 MG TABLET PO SCH ×2 (10:31→20:42)
[2018-05-17] MEDS: PREGABALIN 75 MG CAPSULE PO SCH ×2 (10:31→20:41)
[2018-05-17] MEDS: ISOSORBIDE MONO 30MG TAB SR PO SCH (10:31)
[2018-05-17] MEDS: ASPIRIN 81 MG EC TAB PO SCH (10:32)
[2018-05-17] MEDS: PANTOPRAZOLE SODIUM 40 MG TABLET.DR PO SCH (10:33)
[2018-05-17] MEDS: RANOLAZINE 500 MG TAB.SR.12H PO SCH ×2 (11:12→20:41)
[2018-05-17 12:00] VITALS: BP 120/55
[2018-05-17 16:00] VITALS: BP 119/60
[2018-05-17] MEDS: DIGOXIN 125 MCG TABLET PO SCH (16:58)
[2018-05-17 19:25] VITALS: BP 111/60
[2018-05-17] MEDS: SIMVASTATIN 10 MG TABLET PO SCH (20:41)
[2018-05-17 23:25] VITALS: BP 134/56
[2018-05-18 03:25] VITALS: BP_SYST 111; BP_SYST 124; BP_SYST 136; BP_DIAS 56; BP_DIAS 62; BP_DIAS 65
[2018-05-18] MEDS: LEVOTHYROXINE 125 MCG TABLET PO SCH (05:54)
[2018-05-18] MEDS: HYDROCODONE/ACETAMINOPHEN 5/325 MG TAB PO PRN ×2 (05:57→12:52)
[2018-05-18 06:09] LABS: HEMATOCRIT 35.7 % (42-54); MEAN CORPUSCULAR HGB CONC 33.2 g/dL (32.0-36.0); MEAN CORPUSCULAR VOLUME 90.5 fL (79-99); NUCLEATED RED BLOOD CELLS 0.1 % (0.0-0.19); PLATELET COUNT (AUTO) 226 K/uL (130-400); RED BLOOD CELL COUNT(AUTO) 3.94 MIL/uL (4.50-6.20); WHITE BLOOD COUNT (AUTO) 6.4 K/uL (4.8-10.8)
[2018-05-18 06:25] LABS: CREATININE 1.5 mg/dL (0.5-1.5)
[2018-05-18 07:30] VITALS: BP 135/70
--- NOTE | 2018-05-18 08:00 | NUR ---
discharge patient is voicing concerns that there will be no one at home to assist him. States that he was not informed about the discharge. I reiterated that i educated him on Saturday05/17/18 morning that he would be leaving, that half-way denied him and that he would be sent home and follow up with pcp to attain orders for home health rehab. this am he continues to state that he has not been informed of any discharge. again the doctor and i along with case management educated him on his discharge and his plan to go home and follow up with pcp
[2018-05-18] MEDS: TAMSULOSIN HCL 0.4 MG CAP.ER.24H PO SCH (09:50)
[2018-05-18] MEDS: PRASUGREL HCL 10 MG TABLET PO SCH (09:50)
[2018-05-18] MEDS: PANTOPRAZOLE SODIUM 40 MG TABLET.DR PO SCH (09:50)
[2018-05-18] MEDS: DULOXETINE HCL 30 MG CAP PO SCH (09:51)
[2018-05-18] MEDS: PREGABALIN 75 MG CAPSULE PO SCH (09:51)
[2018-05-18] MEDS: FUROSEMIDE 40 MG TABLET PO SCH (09:51)
[2018-05-18] MEDS: ISOSORBIDE MONO 30MG TAB SR PO SCH (09:51)
[2018-05-18] MEDS: AMLODIPINE BESYLATE 5 MG TAB PO SCH (09:51)
[2018-05-18] MEDS: ENOXAPARIN SODIUM 40 MG/0.4 ML SYRINGE SQ SCH (09:52)
[2018-05-18] MEDS: ASPIRIN 81 MG EC TAB PO SCH (09:52)
[2018-05-18 11:00] VITALS: BP_SYST 119; BP_SYST 126; BP_SYST 134; BP_DIAS 62; BP_DIAS 70; BP_DIAS 75
--- NOTE | 2018-05-18 13:30 | NUR ---
D/C PLAN CM spoke to Dr. Clark regarding d/c planning. aware that pt cannot have home health prior to d/c. States pt is discharging home with instructions to f/u with PCP. CM spoke to pt and explained above. Pt states he is familiar with process and plans on f/u tomorrow morning with Dr. Lisandro Knight clinic opens. Pt gave CM consent to fax records to PCP office to facilitate home health orders. Pt also agreed to DAD's program referral. Pt states he does not have a ride home. CM explained that per [facility] guidelines, he does not meet criteria for ambulance transport and may be billed. Pt verbalized understanding. states he is ambulatory and can get in and out of private vehicle if large enough. CM spoke to supervisor hide house regarding transportation arrangements. States she will be f/u with pt in regards to taxi. No other questions or concerns verbalized. Nursing update with above. Addendum: 05/18/18 at 1449 by ANGEL GARCIA Amended: Links added.
== END 2018-05-18 14:25 | disposition home or self-care (01) | DRG 563 ==
LOC: EDH 22:21 → EDHIP 05-06 00:38 → 3DH 05-06 01:45
PROVIDERS: ADMIT Internal Medicine; ATTEND Internal Medicine
PROC: 5A09357 Assistance with Respiratory Ventilation, Less than 24 Consecutive Hours, Continuous Positive Airway Pressure (ICD-10-PCS; principal; 2018-05-06)
PROC: 5A09357 Assistance with Respiratory Ventilation, Less than 24 Consecutive Hours, Continuous Positive Airway Pressure (ICD-10-PCS; 2018-05-07)
PROC: 5A09357 Assistance with Respiratory Ventilation, Less than 24 Consecutive Hours, Continuous Positive Airway Pressure (ICD-10-PCS; 2018-05-08)
PROC: 5A09357 Assistance with Respiratory Ventilation, Less than 24 Consecutive Hours, Continuous Positive Airway Pressure (ICD-10-PCS; 2018-05-09)
PROC: 5A09357 Assistance with Respiratory Ventilation, Less than 24 Consecutive Hours, Continuous Positive Airway Pressure (ICD-10-PCS; 2018-05-11)
PROC: 5A09357 Assistance with Respiratory Ventilation, Less than 24 Consecutive Hours, Continuous Positive Airway Pressure (ICD-10-PCS; 2018-05-14)
PROC: 5A09357 Assistance with Respiratory Ventilation, Less than 24 Consecutive Hours, Continuous Positive Airway Pressure (ICD-10-PCS; 2018-05-15)
PROC: 5A09357 Assistance with Respiratory Ventilation, Less than 24 Consecutive Hours, Continuous Positive Airway Pressure (ICD-10-PCS; 2018-05-16)
PROC: 5A09357 Assistance with Respiratory Ventilation, Less than 24 Consecutive Hours, Continuous Positive Airway Pressure (ICD-10-PCS; 2018-05-17)
PROC: 5A09357 Assistance with Respiratory Ventilation, Less than 24 Consecutive Hours, Continuous Positive Airway Pressure (ICD-10-PCS; 2018-05-18)
DX: S83.001A Unspecified subluxation of right patella, initial encounter (principal); I50.42 Chronic combined systolic (congestive) and diastolic (congestive) heart failure; S09.90XA Unspecified injury of head, initial encounter; I48.2 Chronic atrial fibrillation; I65.23 Occlusion and stenosis of bilateral carotid arteries; I11.0 Hypertensive heart disease with heart failure; E66.01 Morbid (severe) obesity due to excess calories; G62.9 Polyneuropathy, unspecified; W19.XXXA Unspecified fall, initial encounter; G90.9 Disorder of the autonomic nervous system, unspecified; G24.9 Dystonia, unspecified; I48.0 Paroxysmal atrial fibrillation; I25.10 Atherosclerotic heart disease of native coronary artery without angina pectoris; E03.9 Hypothyroidism, unspecified; E78.5 Hyperlipidemia, unspecified; G89.29 Other chronic pain; I73.9 Peripheral vascular disease, unspecified; J44.9 Chronic obstructive pulmonary disease, unspecified; M47.812 Spondylosis without myelopathy or radiculopathy, cervical region; M47.816 Spondylosis without myelopathy or radiculopathy, lumbar region; N40.0 Benign prostatic hyperplasia without lower urinary tract symptoms; X58.XXXA Exposure to other specified factors, initial encounter; Z68.39 Body mass index [BMI] 39.0-39.9, adult; I25.2 Old myocardial infarction; Z72.0 Tobacco use; Z79.02 Long term (current) use of antithrombotics/antiplatelets; Z79.82 Long term (current) use of aspirin; Z95.1 Presence of aortocoronary bypass graft; Z79.890 Hormone replacement therapy; Z79.899 Other long term (current) drug therapy; Z98.61 Coronary angioplasty status; Y93.89 Activity, other specified; Y92.098 Other place in other non-institutional residence as the place of occurrence of the external cause; Y99.8 Other external cause status; Z82.3 Family history of stroke; Z82.5 Family history of asthma and other chronic lower respiratory diseases; Z82.49 Family history of ischemic heart disease and other diseases of the circulatory system
CPT/HCPCS: 36415; 70450; 71045; 72125; 72128; 72131; 73080; 73560; 73610; 73700; 80048; 80053; 80061; 80305; 81003; 82550; 82948; 83605; 83735; 83874; 83880; 84443; 84484; 85025; 85027; 85610; 85730; 93005; 93306; 93880; 94640; 94660; 94664; 97039; G0378; J1650; J7030

== ENCOUNTER 2018-08-10 21:59 | Inpatient (IN) | payer MEDICARE ==
[~2018-08-10] VITALS: Ht 200.7 cm; Wt 154.3 kg
[~2018-08-10 21:59] MED LIST changes: -AEC81 PO; +AMLO5TAB9 PO; +ASPI-1181 PO; -ASPIRIN; +CHOL50004 PO; +DEXT1DRO OU; +DIGO-44 PO; +ISOS30TA6 PO; -ISOS60TA4 PO; +LEVO125 PO; -LEVO125T11 PO; -METO-408 PO; -MONT10TA24 PO; -OXYC20TA76 PO; +POTA-9 PO; +PRAS10TA9 PO; -PREG200C PO; +PREG75 PO; +RANO10003 PO; -RANO500T2 PO; +SIMV10TA6 PO; -UMEC1DIS IH; -VITAMIN D PO
[2018-08-10 22:34] LABS: BASOPHILS % (AUTO) 0.4 % (0.0-5.0); EOSINOPHILS % (AUTO) 1.2 % (0.0-8.0); HEMATOCRIT 38.1 % (42-54); MEAN CORPUSCULAR HEMOGLOBIN 30.6 pg (27.0-33.0); MEAN CORPUSCULAR HGB CONC 33.3 g/dL (32.0-36.0); MEAN CORPUSCULAR VOLUME 91.9 fL (79-99); MONOCYTES % (AUTO) 8.8 % (3.0-13.0); NEUTROPHILS % (AUTO) 65.6 % (40.0-77.0); PLATELET COUNT (AUTO) 179 K/uL (130-400); RED BLOOD CELL COUNT(AUTO) 4.15 MIL/uL (4.50-6.20); RED CELL DISTRIBUTION WIDTH 15.4 % (11.0-15.5); WHITE BLOOD COUNT (AUTO) 9.2 K/uL (4.8-10.8)
[2018-08-10 22:40] LABS: CREATININE 1.3 mg/dL (0.5-1.5); POTASSIUM 4.3 mmol/L (3.5-5.1)
[2018-08-10 22:42] LABS: INR 0.97 (0.85-1.15); PROTHROMBIN TIME 10.2 SEC (9.6-11.6)
[2018-08-10 22:51] LABS: ALBUMIN 2.9 g/dL (3.5-5.0); BILIRUBIN,TOTAL 0.6 mg/dL (0.2-1.0); TOTAL PROTEIN, SERUM 6.3 g/dL (6.0-8.3)
[2018-08-10] MEDS ORDERED: MORPHINE SULFATE 4 MG/1ML SYG ONE (23:31)
[2018-08-10] MEDS ORDERED: ONDANSETRON HCL 4 MG/2 ML VIAL ONE (23:31)
[2018-08-11] MEDS ORDERED: ONDANSETRON HCL 4 MG/2 ML VIAL IV PRN (01:00)
[2018-08-11] MEDS ORDERED: NITROGLYCERIN 1GM/1 INCH PACKET TD SCH ×2 (01:00→06:09)
[2018-08-11] MEDS ORDERED: ACETAMINOPHEN 325 MG TAB PO PRN ×2 (01:00)
[2018-08-11] MEDS ORDERED: MORPHINE SULFATE 2 MG/ML 1ML SYG IV PRN (01:00)
[2018-08-11] MEDS ORDERED: MORPHINE SULFATE 4 MG/1ML SYG IV PRN (01:00)
[2018-08-11 03:00] VITALS: BP 118/62
[2018-08-11 07:45] VITALS: BP 115/52
[2018-08-11] MEDS: ASPIRIN 325 MG TABLET PO SCH (09:52)
[2018-08-11] MEDS: FAMOTIDINE/PF 20 MG/2 ML VIAL IV SCH ×2 (09:52→20:30)
[2018-08-11] MEDS: METOPROLOL TARTRATE 25 MG TAB PO SCH ×2 (09:52→20:31)
[2018-08-11] MEDS: NITROGLYCERIN 1GM/1 INCH PACKET TD SCH ×2 (09:53→17:43)
[2018-08-11] MEDS: ENOXAPARIN SODIUM 40 MG/0.4 ML SYRINGE SQ SCH ×2 (09:53→20:30)
[2018-08-11 11:50] VITALS: BP 116/59
[2018-08-11 15:57] VITALS: BP 90/38
--- NOTE | 2018-08-11 17:22 | NUR ---
cm note met with patient and state resides athome with cousin megan lee, states she doesnot do a whole lot for him. pt states able to do own bath, but has been weaker lately. has recently had oxygen concentrator and some o2 tanks delivered to his home, unable to recall name of agency. ordered by dr humphreys, states he has a bipap and walker and cane he uses at home. disucssed with pt option for snf level of care if he feels too weak, and he states he will not make that decision until after he speaks to md, he has been at [facility] in the past and did not like it. also wants to speak to his son from out of town as well. but, he will think about it. Addendum: 08/11/18 at 1725 by RICHI UGARTE CM Amended: Links added.
[2018-08-11 19:09] LABS: APPEARANCE,URINE Clear (CLEAR); BILIRUBIN,URINE Negative (NEGATIVE); COLOR,URINE Yellow (YELLOW); GLUCOSE, URINE (UA) Negative (NEGATIVE); KETONES,URINE Negative (NEGATIVE); LEUKOCYTE ESTERASE ,URINE Negative (NEGATIVE); NITRATE,URINE Negative (NEGATIVE); OCCULT BLOOD,URINE Negative (NEGATIVE); PROTEIN,URINE Negative (NEGATIVE)
[2018-08-11 19:35] VITALS: BP 103/74
[2018-08-12] VITALS (12 sets, daily range): BP systolic 93–121; BP diastolic 39–74
[2018-08-12] MEDS: NITROGLYCERIN 1GM/1 INCH PACKET TD SCH (01:57)
[2018-08-12 04:01] LABS: HEMATOCRIT 34.3 % (42-54); MEAN CORPUSCULAR HEMOGLOBIN 31.4 pg (27.0-33.0); MEAN CORPUSCULAR HGB CONC 34.4 g/dL (32.0-36.0); MEAN CORPUSCULAR VOLUME 91.5 fL (79-99); PLATELET COUNT (AUTO) 166 K/uL (130-400); RED BLOOD CELL COUNT(AUTO) 3.75 MIL/uL (4.50-6.20); RED CELL DISTRIBUTION WIDTH 15.3 % (11.0-15.5); WHITE BLOOD COUNT (AUTO) 8.6 K/uL (4.8-10.8)
[2018-08-12 04:09] LABS: INR 0.96 (0.85-1.15); PARTIAL THROMBOPLASTIN TIME 29.4 SEC (26.3-35.5); PROTHROMBIN TIME 10.1 SEC (9.6-11.6)
[2018-08-12 04:18] LABS: B-TYPE NATRIURETIC PEPTIDE 87 pg/mL (0-100)
[2018-08-12 04:24] LABS: ALBUMIN 2.6 g/dL (3.5-5.0); CREATININE 1.4 mg/dL (0.5-1.5); MAGNESIUM 2.1 mg/dL (1.80-2.40); PHOSPHORUS 3.4 mg/dL (2.5-4.9); POTASSIUM 3.9 mmol/L (3.5-5.1); THYROID STIMULATING HORMONE 1.66 uIU/mL (0.36-3.74)
--- NOTE | 2018-08-12 05:28 | NUR ---
PATIENT ORIENTED X3, DROWSY. DENIES CHEST PAIN OR SOB. RESTING IN BED. BATH CLIPPED AND PREPPED FOR [facility] IN AM BY PETEY. NPO SINCE MIDNIGHT.
[2018-08-12] MEDS ORDERED: BIVALIRUDIN 250 MG/VIAL IV ONE (07:19)
[2018-08-12] MEDS ORDERED: IOHEXOL-350 50ML VIAL IV ONE (07:20)
[2018-08-12] MEDS: ENOXAPARIN SODIUM 40 MG/0.4 ML SYRINGE SQ SCH ×2 (07:20→22:27)
[2018-08-12] MEDS ORDERED: NITROGLYCERIN 5 MG/ML 10 ML VIAL IV ONE (07:20)
[2018-08-12] MEDS ORDERED: LIDOCAINE HCL 2% 20ML ONE (07:20)
[2018-08-12] MEDS ORDERED: IOHEXOL 350 MG/ML 100ML INFUS..BTL IV ONE ×2 (07:20→07:58)
[2018-08-12] MEDS: ASPIRIN 325 MG TABLET PO SCH (07:20)
[2018-08-12] MEDS ORDERED: FENTANYL CITRATE PF 50 MCG/1 ML 2ML VIAL ONE (07:57)
[2018-08-12] MEDS ORDERED: MIDAZOLAM HCL 1 MG/ML 2ML VIAL ONE (07:57)
[2018-08-12] MEDS ORDERED: SODIUM CHLORIDE 0.9% 1000ML 1,000 ML IV SCH (08:44)
[2018-08-12] MEDS ORDERED: NON-FORMULARY MEDICATION 1 EACH (Aspirin (Aspirin EC) 81 MG) PO SCH (09:00)
[2018-08-12] MEDS ORDERED: FAMOTIDINE/PF 20 MG/2 ML VIAL IV SCH (09:21)
[2018-08-12] MEDS: ISOSORBIDE MONO 30MG TAB SR PO SCH (09:26)
[2018-08-12] MEDS: TAMSULOSIN HCL 0.4 MG CAP.ER.24H PO SCH (09:26)
[2018-08-12] MEDS: FUROSEMIDE 40 MG TABLET PO SCH ×2 (09:27→22:26)
[2018-08-12] MEDS: PREGABALIN 75 MG CAPSULE PO SCH ×2 (09:27→22:26)
[2018-08-12] MEDS: METOPROLOL TARTRATE 25 MG TAB PO SCH ×2 (09:27→22:28)
[2018-08-12] MEDS: AMLODIPINE BESYLATE 5 MG TAB PO SCH (09:27)
[2018-08-12] MEDS ORDERED: PRASUGREL HCL 10 MG TABLET PO SCH (09:45)
--- NOTE | 2018-08-12 10:50 | NUR ---
HOSPICE SW visited with pt who states that Dr Knight referred him to hospice 2 days ago. Pt states he did not qualify for O2 and really needed it, so pt was referred to hospice. Pt did not know name of agency. Sw called Dr Knight office and was told pt was referred to [facility]. Ramon spoke to Kalli at [facility], pt was on service 1 week and revoked 2 days ago.
[2018-08-12] MEDS: ALPRAZOLAM 1 MG TAB PO SCH (11:08)
[2018-08-12] MEDS: RANOLAZINE 500 MG TAB.SR.12H PO SCH ×2 (11:08→22:26)
[2018-08-12] MEDS: DULOXETINE HCL 30 MG CAP PO SCH (11:08)
[2018-08-12] MEDS ORDERED: ISOS60TA4 PO (14:26)
[2018-08-12] MEDS: DIGOXIN 125 MCG TABLET PO SCH (16:39)
[2018-08-12] MEDS ORDERED: SIMVASTATIN 10 MG TABLET PO SCH (21:00)
[2018-08-13 00:04] VITALS: BP 110/49
--- NOTE | 2018-08-13 04:25 | NUR ---
Patient resting in bed. R groin site soft, non tender. Bilateral pedal pulses weak. Patient denies chest pain or sob.
[2018-08-13 04:28] VITALS: BP 112/44
[2018-08-13] MEDS ORDERED: LEVOTHYROXINE 125 MCG TABLET PO SCH (06:30)
[2018-08-13 07:00] VITALS: BP 115/67
--- NOTE | 2018-08-13 08:30 | NUR ---
AM ASSESSMENT PT LAYING IN BED, HOB ELEVATE D30 DEGREES, RESTING. A/O X 3. SOB ON EXERTION. NO DISTRESS NOTED. O2 NC @ 3L. DENIES CHEST PAIN OR DISCOMFORT. DENIES PALPITATIONS. DENIES INCISIONAL PAIN. TELE: AIFB W/OCC PVCs 70s. DENIES N/V AND/OR DIARRHEA. RT GROIN SOFT, NON-TENDER. DSG DRY & INTACT. NO BLEEDING, NO HEMATOMA NOTED. INSTRUCTED TO CALL FOR ASSISTANCE. CALL NEEMA W/IN REACH.
[2018-08-13] MEDS ORDERED: POTASSIUM CHLORIDE 10 MEQ/TAB.SA PO SCH (09:00)
[2018-08-13] MEDS ORDERED: Cholecalciferol (Vitamin D3) 5,000 UNIT PO SCH (09:00)
[2018-08-13] MEDS ORDERED: PRASUGREL HCL 10 MG TABLET PO SCH (09:00)
[2018-08-13] MEDS ORDERED: FAMOTIDINE 20MG TAB 20 MG TAB PO SCH (09:00)
[2018-08-13] MEDS: ALPRAZOLAM 1 MG TAB PO SCH (09:01)
[2018-08-13] MEDS: RANOLAZINE 500 MG TAB.SR.12H PO SCH (09:01)
[2018-08-13] MEDS: TAMSULOSIN HCL 0.4 MG CAP.ER.24H PO SCH (09:01)
[2018-08-13] MEDS: ENOXAPARIN SODIUM 40 MG/0.4 ML SYRINGE SQ SCH (09:01)
[2018-08-13] MEDS: ASPIRIN 325 MG TABLET PO SCH (09:02)
[2018-08-13] MEDS: ISOSORBIDE MONO 30MG TAB SR PO SCH (09:02)
[2018-08-13] MEDS: DULOXETINE HCL 30 MG CAP PO SCH (09:03)
[2018-08-13] MEDS: AMLODIPINE BESYLATE 5 MG TAB PO SCH (09:03)
[2018-08-13] MEDS: FUROSEMIDE 40 MG TABLET PO SCH (09:03)
[2018-08-13] MEDS: METOPROLOL TARTRATE 25 MG TAB PO SCH (09:04)
[2018-08-13] MEDS: PREGABALIN 75 MG CAPSULE PO SCH (09:04)
--- NOTE | 2018-08-13 10:00 | NUR ---
DCP - HOME WITH [facility] Per CMD, transportation was issue with pt leaving yesterday. Sw informed nurse Kareen that pt may try and stall dc, stating cousin will cook pickled meat. Pt was c/o not being able to call cousin long distance from room. Informed nurse of need to call cousin and verify she can cook pickled meat pt. Nurse states she will call when able. CMD informed
[2018-08-13 11:00] VITALS: BP 102/55
--- NOTE | 2018-08-13 11:32 | NUR ---
KARLO recd call from Rachel at [facility]. Pt has been accepted and they are waiting on nurse to call report to [phone].
--- NOTE | 2018-08-13 12:23 | NUR ---
DISCHARGE REPORT CALLED TO SHAHRZAD SOOD RN @ [facility].
--- NOTE | 2018-08-13 14:35 | NUR ---
DISCHARGE EMS TRANSPORT REQUESTED. PAPERWORK FAXED.
--- NOTE | 2018-08-13 14:40 | NUR ---
DISCHARGE VERBAL & WRITTEN DISCHARGE INSTRUCTIONS REVIEWED & GIVEN TO PT. QUESTIONS ENCOURAGED & CLARIFIED. PROPER CARE & ACTIVITY AFTER LHC REVIEWED. NEW PRESCRIBED MEDICATION REVIEWED. PRESCRIPTION GIVEN TO PT;SIGNED COPY PLACED IN CHART. IV DISCONTINUED. TELE YELENA REMOVED. PT INFORMED EMS HAS BEEN CALLED AND PENDING ARRIVAL.
[2018-08-13 16:00] VITALS: BP 107/54
[2018-08-13] MEDS: DIGOXIN 125 MCG TABLET PO SCH (16:54)
--- NOTE | 2018-08-13 17:35 | NUR ---
DISCHARGE EMS HERE TO TRANSPORT PT HOME.
== END 2018-08-13 17:35 | disposition home health service (06) | DRG 287 ==
LOC: EDH 21:59 → EDHIP 08-11 00:50 → 2AH 08-11 01:17
PROVIDERS: ADMIT Hospitalist; ATTEND Hospitalist
PROC: B2111ZZ Fluoroscopy of Multiple Coronary Arteries using Low Osmolar Contrast (ICD-10-PCS; principal; 2018-08-12)
PROC: B51B1ZZ Fluoroscopy of Right Lower Extremity Veins using Low Osmolar Contrast (ICD-10-PCS; 2018-08-12)
PROC: B2151ZZ Fluoroscopy of Left Heart using Low Osmolar Contrast (ICD-10-PCS; 2018-08-12)
PROC: B2181ZZ Fluoroscopy of Left Internal Mammary Bypass Graft using Low Osmolar Contrast (ICD-10-PCS; 2018-08-12)
PROC: 4A023N7 Measurement of Cardiac Sampling and Pressure, Left Heart, Percutaneous Approach (ICD-10-PCS; 2018-08-12)
PROC: B2131ZZ Fluoroscopy of Multiple Coronary Artery Bypass Grafts using Low Osmolar Contrast (ICD-10-PCS; 2018-08-12)
DX: T82.898A Other specified complication of vascular prosthetic devices, implants and grafts, initial encounter (principal); I25.110 Atherosclerotic heart disease of native coronary artery with unstable angina pectoris; I50.42 Chronic combined systolic (congestive) and diastolic (congestive) heart failure; E78.5 Hyperlipidemia, unspecified; I11.0 Hypertensive heart disease with heart failure; I25.5 Ischemic cardiomyopathy; I48.0 Paroxysmal atrial fibrillation; I73.9 Peripheral vascular disease, unspecified; I87.2 Venous insufficiency (chronic) (peripheral); J44.9 Chronic obstructive pulmonary disease, unspecified; K21.9 Gastro-esophageal reflux disease without esophagitis; M48.02 Spinal stenosis, cervical region; N40.0 Benign prostatic hyperplasia without lower urinary tract symptoms; Z79.02 Long term (current) use of antithrombotics/antiplatelets; Z79.899 Other long term (current) drug therapy; Z95.5 Presence of coronary angioplasty implant and graft; Z82.3 Family history of stroke; Z82.5 Family history of asthma and other chronic lower respiratory diseases; Z82.49 Family history of ischemic heart disease and other diseases of the circulatory system; Z80.9 Family history of malignant neoplasm, unspecified
CPT/HCPCS: 36415; 71045; 80048; 80053; 80061; 81003; 82040; 82550; 83735; 83874; 83880; 84100; 84443; 84484; 85025; 85027; 85610; 85730; 93005; 93459; 99156; 99157; C1760; C1769; C1894; G0378; J0583; J1644; J1650; J2250; J2270; J2405; J3010; J3490; J7030; Q9967